=== PATIENT | female | born 1985 | race African-American/Black ===

== ENCOUNTER 2021-03-29 15:21 | Emergency (ER) | payer OTHER ==
[~2021-03-29] VITALS: Ht 162.6 cm; Wt 57.2 kg
[2021-03-29] MEDS ORDERED: ORPHENADRINE C100 MG PO (18:51)
[2021-03-29] MEDS ORDERED: KETO10TA2 PO (18:51)
== END 2021-03-29 20:38 | disposition home or self-care (01) ==
LOC: ER 15:21
DX: S63.502A Unspecified sprain of left wrist, initial encounter (principal); M25.532 Pain in left wrist; W00.2XXA Other fall from one level to another due to ice and snow, initial encounter; Y93.55 Activity, bike riding; Y92.9 Unspecified place or not applicable